=== PATIENT | male | born 1980 | race Caucasian/White ===

== ENCOUNTER 2023-04-20 09:54 | Emergency (ER) | payer BC ==
[~2023-04-20] VITALS: Ht 185.4 cm; Wt 92.3 kg
[2023-04-20 09:59] VITALS: BP 143/84; PULSE 58; RESP 18; TEMP 97.4; O2SAT 100
[2023-04-20] MEDS ORDERED: LIDOcaine 1% 30ml preserv. free vial IJ ONE (10:10)
[2023-04-20] MEDS ORDERED: SULF1TAB49 PO (10:56)
--- NOTE | 2023-04-20 11:10 | NUR ---
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
== END 2023-04-20 11:11 | disposition home or self-care (01) ==
LOC: ER 09:54
DX: L02.412 Cutaneous abscess of left axilla (principal)
CPT/HCPCS: 10060; 99283; A6449